=== PATIENT | male | born 1965 | race American Indian/Alaskan Native ===

== ENCOUNTER 2019-10-12 13:03 | Emergency (ER) | payer SELFPAY ==
[2019-10-12 13:49] VITALS: BP 139/59
--- NOTE | 2019-10-12 13:49 | Emergency Department Report ---
Chief Complaint: Extremity Problem,Nontraumatic Stated Complaint: (L) LEG/FOOT SWOLLEN Time Seen by Provider: 10/12/19 13:48 - HPI History of Present Illness: 54 y/o male just flew form [facility], here with non traumatic rle leg foot swelling 2+ pulses noted mild edema noted neuro vasc intact labs duplex ok for minor care reassess Vital Signs - 24 hr 10/12/19 13:47 Temperature 97.2 F L Pulse Rate 67 Respiratory 18 Rate Blood Pressure 139/59 O2 Sat by Pulse 97 Oximetry MSE screening note: Focused history and physical exam performed. Due to findings the following was ordered: ED Disposition for MSE Condition: Stable
[2019-10-12 14:57] LABS: Hematocrit 36.1 % (35.5-45.6); Hemoglobin 11.5 gm/dl (11.8-15.2); Mean Corpuscular HGB Conc 32 % (32-34); Mean Corpuscular Volume 72 fl (84-94); Platelet Count 257 K/mm3 (140-440); Red Blood Count 5.03 M/mm3 (3.65-5.03); Red Cell Distribution Width 15.2 % (13.2-15.2)
[2019-10-12 15:00] LABS: INR 1.06 (0.87-1.13)
[2019-10-12 15:12] LABS: Alanine Aminotransferase 14 units/L (7-56); BUN/Creatinine Ratio 10; Blood Urea Nitrogen 11 mg/dL (9-20); Calcium 9.1 mg/dL (8.4-10.2); Hemolysis Index 3
--- NOTE | 2019-10-12 16:23 | Vascular Lab Report ---
DUPLEX DOPPLER LOWER EXTREMITY VEINS, RIGHT INDICATION: Right lower extremity swelling.. TECHNIQUE: Duplex doppler imaging was performed through the veins of the right lower extremity using venous comp ression and other maneuvers. COMPARISON: None available. FINDINGS: Common femoral vein: Negative. Superficial femoral vein: Negative. Popliteal vein: Negative. Calf veins: Negative. Additional findings: There is mild soft tissue edema in the region of the knee. There is no evidence of a popliteal cyst or other abnormality. IMPRESSION: No sonographic evidence for DVT in the right lower extremity. Signer Name: Chucho Lawrence MD Signed: 10/12/2019 4:18 PM Workstation Name: [id number]
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
== END 2019-10-12 20:11 | disposition home or self-care (01) ==
LOC: EDSEX → ED 13:03
DX: M79.604 Pain in right leg (principal); R22.41 Localized swelling, mass and lump, right lower limb; I10 Essential (primary) hypertension; J45.909 Unspecified asthma, uncomplicated; Z98.890 Other specified postprocedural states
CPT/HCPCS: 36415; 80053; 82550; 83735; 85027; 85610